=== PATIENT | male | born 1955 | race Caucasian/White ===

== ENCOUNTER 2017-12-13 10:49 | Observation (INO) ==
[2017-12-13] MEDS ORDERED: Tdap (Boostrix) Vaccine 0.5 ML SYRINGE IM ONE (11:10)
--- NOTE | 2017-12-13 11:14 | Emergency Department Note ---
Disposition Clinical Impression: High-pressure injection injury of finger of left hand Qualifiers: Encounter type: initial encounter Qualified Code(s): S69.82XA - Other specified injuries of left wrist, hand and finger(s), initial encounter; W29.8XXA - Contact with other powered hand tools and household machinery, initial encounter Disposition: Admitted As Inpatient Condition: Good Forms: ED Satisfaction Letter Time of Disposition: 12:31 General Adult HPI - General Chief complaint: ED Extremity Injury, Upper Stated complaint: Finger injury Time Seen by Provider: 12/13/17 11:04 Source: patient Limitations: no limitations - History of Present Illness Pain Scale: 9 - Related Data Allergies Allergy/AdvReac Type Severity Reaction Status Date / Time No Known Allergies Allergy Verified 12/13/17 11:12 Past Medical History - Past Medical History Medical history: Reports: other Psychiatric history: Reports: no psych history - Social History Smoking Status: Never smoker Smokeless Tobacco Status: No Alcohol use: Reports: occasionally Drug use: Reports: none Physical Exam - General Limitations: no limitations General appearance: alert, appears intoxicated Course Vital Signs Temperature 98.4 F 12/13/17 11:01 Pulse Rate 95 12/13/17 11:01 Respiratory Rate 18 12/13/17 11:01 Blood Pressure 173/96 12/13/17 11:01 O2 Sat by Pulse Oximetry 96 12/13/17 11:01 Temperature 98.4 F 12/13/17 11:09 Pulse Rate 95 12/13/17 11:09 Respiratory Rate 18 12/13/17 11:09 Blood Pressure 173/96 12/13/17 11:09 O2 Sat by Pulse Oximetry 96 12/13/17 11:09 Oxygen Delivery Oxygen Delivery Room Air Attestation Statement - Attestation Attestation: For this encounter, I have reviewed the PAPER MACHINE BACKTENDER or PA documentation, treatment plan, and medical decision making; and I have had face to face time with this patient. [id number] time provided Patient arrives after a pressure injection of hydraulic fluid to his left third digit. He does have a puncture wound and circumferential swelling. I have recommended the nurse practitioner to contact the hand surgeon, to update tetanus, to initiate antibiotics, and to discuss the possible need for operative washout
--- NOTE | 2017-12-13 11:23 | Emergency Department Note ---
Disposition Clinical Impression: High-pressure injection injury of finger of left hand Qualifiers: Encounter type: initial encounter Qualified Code(s): S69.82XA - Other specified injuries of left wrist, hand and finger(s), initial encounter Disposition: Admitted As Inpatient Condition: Good Referrals: Herrera Auguste DO [Primary Care Provider] - Forms: ED Satisfaction Letter Time of Disposition: 12:41 Upper Extremity HPI - General Chief Complaint: ED Extremity Injury, Upper Stated Complaint: Finger injury Time Seen by Provider: 12/13/17 11:04 Source: patient Mode of arrival: ambulatory Limitations: no limitations Nursing Notes Reviewed: Yes Vital Signs Reviewed: Yes - History of Present Illness HPI Narrative: Nontoxic-appearing 62-year-old male presents for evaluation of the left third finger injury sustained just prior to arrival at work. The patient states that he was working on a hydraulic line that exploded. He sustained a high pressure injection type injury to the palmar surface of the right third finger. Tetanus immunization status is not up-to-date. 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 Review of Systems: As Per HPI Constitutional: Denies: fever, chills, weakness, weight change Eyes: Denies: eye pain, eye discharge, vision change ENT ED: Denies: ear pain, throat pain, dental pain, hearing loss, epistaxis, congestion, dysphagia Cardiovascular: Denies: chest pain, palpitations, dyspnea on exertion, edema, syncope Respiratory: Denies: cough, dyspnea, wheezes, hemoptysis, stridor Gastrointestinal: Denies: abdominal pain, nausea, vomiting, diarrhea, constipation, hematemesis, melena, hematochezia Genitourinary: Denies: urgency, dysuria, frequency, hematuria Musculoskeletal: Reports: as per HPI, other (Left third finger injury). Denies : back pain, neck pain, arthralgia, myalgia Integumentary: Denies: rash, abrasion, lesions Neurological: Denies: headache, weakness, numbness, paresthesias, confusion, abnormal gait, vertigo Psychiatric: Denies: anxiety, depression, suicidal thoughts, homicidal thoughts , auditory hallucinations, visual hallucinations Endocrine: Denies: fatigue Hematological/Lymphatic: Denies: easy bleeding, easy bruising Allergic/Immunologic: Denies: facial swelling, urticaria Past Medical History - Past Medical History Attestation: Yes The following information was validated with the patient. Source: patient, nursing notes reviewed Medical history: Reports: other Psychiatric history: Reports: no psych history - Social History Smoking Status: Never smoker Smokeless Tobacco Status: No Alcohol use: Reports: occasionally Drug use: Reports: none Physical Exam - General Limitations: no limitations General appearance: alert, appears intoxicated - Head Head exam: atraumatic, normocephalic, normal inspection - Eye Eye exam: Present: normal appearance, PERRL, EOMI. Absent: nystagmus - ENT ENT exam: mucous membranes moist - Neck Neck exam: Present: normal inspection, full ROM, trachea midline - Chest Chest inspection: Present: normal inspection, symmetric chest wall rise - Expanded Upper Extremity Exam Elbow exam: Present: normal inspection, full ROM Forearm/Wrist exam: Present: normal inspection, full ROM Hand exam: Present: tenderness (Left third digit), swelling (Moderate, left third digit), other Hand L/R front image: 1 - other (2 separate minute puncture wounds from the patient's injection type injury.) Neuromotor exam: Normal: wrist extension, thumb opposition, fingers 2-5 abduction Neurosensory exam: Normal: radial nerve, ulnar nerve Hand tendon exam: Abnorm: flexor digitorum profundus (location) (Left third finger), extensor tendon (location) (Left third finger) Vascular exam: Normal: capillary refill, radial pulse, ulnar pulse - Neurological Exam Neurological exam: Present: alert, oriented X3 - Psychiatric Psychiatric exam: Present: normal affect, normal mood - Skin Skin exam: Present: warm, dry Course Course Narrative: 1115: I spoke with Dr. Peng, hand specialist with the [facility]. He states that this patient will likely need debridement in the operating room. Dr. Peng is currently in the OR as we speak however states that he will send his physician news assistant, Emmy Ríos to the emergency department to evaluate patient. He recommends updating the patient's tetanus status, obtaining a plain film x-ray. He advises against the administration of IV antibiotics at this time. The patient has been evaluated by orthopedics. Orthopedics is a prescription that the patient for admission under their services for probable surgical debridement. Vital Signs Temperature 98.4 F 12/13/17 11:01 Pulse Rate 95 12/13/17 11:01 Respiratory Rate 18 12/13/17 11:01 Blood Pressure 173/96 12/13/17 11:01 O2 Sat by Pulse Oximetry 96 12/13/17 11:01 Temperature 98.4 F 12/13/17 11:09 Pulse Rate 95 12/13/17 11:09 Respiratory Rate 18 12/13/17 11:09 Blood Pressure 173/96 12/13/17 11:09 O2 Sat by Pulse Oximetry 96 12/13/17 11:09 Oxygen Delivery Oxygen Delivery Room Air Extremity Injury, Upper - Medical Records Medical records reviewed: Yes I reviewed the patient's medical records. - Radiology Data Radiology results reviewed: Yes I reviewed the patient's radiology results.
[2017-12-13] MEDS ORDERED: Ondansetron 4 MG/2 ML VIAL ONE (13:25)
[2017-12-13] MEDS ORDERED: *HR* FentaNYL (PF) 100 MCG/2 ML VIAL ONE ×2 (13:25→15:07)
[2017-12-13] MEDS ORDERED: Lidocaine -MPF 2% 2 ML VIAL ONE ×2 (13:25→13:35)
[2017-12-13] MEDS ORDERED: *HR* Propofol 200 MG/20 ML VIAL IVP ONE (13:25)
[2017-12-13] MEDS ORDERED: Dexamethasone 4 MG/ML VIAL ONE (13:25)
[2017-12-13] MEDS ORDERED: Acetaminophen IV 1,000 MG/100 ML INFUS..BTL IVPB ONE ×2 (13:34→17:46)
[2017-12-13] MEDS ORDERED: Famotidine 20 MG/2 ML VIAL IVP ONE ×2 (13:34→17:46)
--- NOTE | 2017-12-13 13:37 | Anesthesia Evaluation PreOp ---
Date of Encounter: 12/13/17 Time of Encounter: 13:35 - Past History Planned Operation: Left Long Finger Incision and Drainage Cardiac History: Denies any Significant Hx Pulmonary History: Denies Any Significant HX SENIOR CLINICAL DATA ANALYST History: Denies Any Significant HX Other Medical History: Other (Gout) Anesthesia History: No Prior Anesthetic Complications Alcohol Use: occasionally Drug use: none Medications and Allergies 3 Allergy/AdvReac Type Severity Reaction Status Date / Time No Known Allergies Allergy Verified 12/13/17 11:12 - Meds/Allergy Pre-op Review Medications Reviewed: Yes Allergies Reviewed: Yes Beta Blockers on Current Med List: No Anesthesia Exam O2 Sat Height 1.85 m Height 1.85 m Weight 96.615 kg Weight 96.615 kg O2 Sat by Pulse Oximetry 96 O2 Sat by Pulse Oximetry 96 Vital Signs Temp Pulse Resp BP Pulse Ox 98.4 F 95 18 173/96 96 12/13/17 11:01 12/13/17 11:01 12/13/17 11:01 12/13/17 11:01 12/13/17 11:01 Height: 6'1 Weight: 213 lbs NPO (# of Hours): 0800 today eggs cheese Pain Scale: 2 - HEENT Pupil (Motor): Pupils equal, EOMI Mallampati: III Teeth: Normal Oral Opening: Less than or equal to 3 - SENIOR CLINICAL DATA ANALYST LOC: Oriented SENIOR CLINICAL DATA ANALYST Motor: Normal RUE, Normal LUE, Normal RLE, Normal LLE, Normal Face SENIOR CLINICAL DATA ANALYST Sensory: Normal: RUE, LUE, RLE, LLE, Face - Cardiac Rhythm: Regular Murmur: None JVD: No Carotid Bruit: No - Pulmonary Breath Sounds: bilateral Clear Respiratory Effort: Symmetrical Anesthesia Assess/Plan ASA Score: 2, E Modified [place] Scale for Level of Consciousness: Cooperative, oriented, and tranquil Anesthetic Plan: General Monitoring Plan: Standard Monitors Recovery Plan: PACU (Discussed GA, agrees to proceed)
--- NOTE | 2017-12-13 13:39 | Orthopedic History & Physical ---
Date of Encounter: 12/13/17 Time of Encounter: 12:00 Assessment and Plan (1) High-pressure injection injury of finger of left hand Current visit: Yes Status: Acute High risk of infection due to the nature of injury and risk of oil still in finger. Discussed case with Dr. Peng. This injury with require surgical intervention. Plan for left finger and hand incision and drainage today. I discussed the procedure as well as r/b/a with the patient. He expressed understanding and consent was obtained and given to the OR charge nurse. Keep NPO. He states he last had a cup of coffee and slice of cheese around 8am this morning. Will hold abx for now. Qualifiers: Encounter type: initial encounter Qualified Code(s): S69.82XA - Other specified injuries of left wrist, hand and finger(s), initial encounter; W29.8XXA - Contact with other powered hand tools and household machinery, initial encounter History of Present Illness Chief complaint: left long finger pain HPI: Mr. Lou is a 62 year old male who presented to the ER with a left long finger injury. 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 The other paulino increased the lever too much and caused the oil to spray out at a high pressure. He states it is operating under pressure of 3,000 psi. The oil sprayed through a mat that was around the pipe, through the gloves he was wearing and punctured his skin. The injury occurred around 10:30 this morning. He states he was able to push on the finger and oil came out of wound. Pain is described as constant burning, 8/10, localized to long finger and does not radiate into hand. He admits to tingling sensation through the finger. Denies pain anywhere else. States he is otherwise healthy and denies any other symptoms at this time. He is right hand dominant. Past Med Surg Social Fam HX - Past Medical History Medical history: other Additional medical history: gout Psychiatric history: no psych history - Social History Smoking Status: Never smoker Smokeless Tobacco Status: No Alcohol use: occasionally Drug use: none Medications and Allergies 3 Allergy/AdvReac Type Severity Reaction Status Date / Time No Known Allergies Allergy Verified 12/13/17 11:12 All Systems Reviewed: The remainder of the systems were reviewed and are negative - Constitutional Constitutional: as per HPI - Cardiovascular Cardiovascular: as per HPI - Respiratory Respiratory: as per HPI - Musculoskeletal Musculoskeletal: as per HPI Physical Exam - Constitutional Vitals: Temp Pulse Resp BP Pulse Ox 98.4 F 95 18 173/96 96 12/13/17 11:09 12/13/17 11:09 12/13/17 11:09 12/13/17 11:09 12/13/17 11:09 - Wrist & Hand left Location of pain: long finger (moderate swelling and tightness to left long finger with superficial longitudinal abrasion noted over volar surface of middle phalanx with small amount bleeding. Pain with palpation of PIPJ and DIPJ. No pain with palpation at MPJ. limited ROM at PIPJ and DIPJ. brisk cap refill. grossly NV intact) Results - Labs Labs: All other labs normal. - Diagnostic results Wrist/Hand x-ray: report reviewed, image reviewed - Attending Attestation Case and plan of care discussed with supervising physician who was available for all aspects of care.
[2017-12-13] MEDS ORDERED: Acetaminophen IV 1,000 MG/100 ML INFUS..BTL ONE (13:42)
[2017-12-13] MEDS ORDERED: Famotidine 20 MG/2 ML VIAL ONE (13:42)
[2017-12-13] MEDS ORDERED: Ringers Solution, Lactated 1,000 ML IVC SCH (13:45)
[2017-12-13] MEDS ORDERED: *HR* OxyCODONE Immed Rel 5 MG TABLET PO PRN ×2 (15:31→17:46)
[2017-12-13] MEDS ORDERED: MORPHINE SUL Oral CONC 10 MG/0.5 ML ORAL.SYG SL PRN (15:31)
[2017-12-13] MEDS ORDERED: *HR* Promethazine 25 MG/ML VIAL IVP PRN (15:31)
[2017-12-13] MEDS ORDERED: *HR* HYDROmorphone (PF) 1 MG/ML SYRINGE IVP PRN (15:31)
[2017-12-13] MEDS ORDERED: *HR* Meperidine 25 MG/ML SYRINGE IVP PRN (15:31)
[2017-12-13] MEDS ORDERED: Ondansetron 4 MG/2 ML VIAL IVP ONE ×2 (15:31→17:46)
[2017-12-13] MEDS ORDERED: *HR* Labetalol 20 MG/4 ML SYRINGE IVP PRN (15:31)
[2017-12-13] MEDS ORDERED: *HR* Morphine 10 MG/ML VIAL ONE (15:34)
--- NOTE | 2017-12-13 16:24 | Operative Note ---
Date of procedure: 12/13/17 Pre-op diagnosis: Left long finger high-pressure injection injury with hydraulic fluid Post-op diagnosis: same Procedure: Left hand/long finger decompression for ahigh-pressure injection injury Anesthesia: GETA Surgeon: Ian Peng Was there an research assistant present: Yes Finance Administrator: Emmy Adams Estimated blood loss (cc): 3 Tourniquet Time (Minutes): 14 Specimen: 0 Condition: stable Disposition: PACU Procedure in Detail: Indications: The patient is a 62-year-old [id number] gentleman who sustained a high-pressure injection injury to the volar side of his left long finger with hydraulic fluid. This injury happened earlier this morning a few hours ago. Procedure: The patient received IV antibiotics in the holding area, was brought into the operating room and placed on the OR table in supine position with the affected extremity on a hand table. A sign in was performed. The patient underwent general anesthesia, a tourniquet was placed on the left arm close to the axilla. The left upper extremity was prepped and draped in usual sterile fashion. A timeout was performed. The left upper extremity was then elevated , exsanguinated with an Georgi wrap and the tourniquet was raised to a pressure of 250 mmHg. The patient had a puncture wound on the volar surface of the left long finger just proximal to the distal interphalangeal joint flexion crease, more to the ulnar side. A Sussy's zigzag incision was performed cephalad ulnar side of the long finger DIP flexion crease and going proximally up to the MP flexion crease. Full-thickness skin flaps were elevated. There was a clear thin greasy fluid tracking along the flexor tendon sheath. I then also opened up a 1.5 cm incision proximal to the A1 neha level and also Some of the fluid. The incision was extended, connecting 2 wounds in zigzag fashion extending up to the distal carpal tunnel level. The flexor tendon was examined at the distal end of the carpal tunnel where it appeared fully dry and normal. The wound was copiously irrigated with normal saline. The tourniquet was deflated. Hemostasis obtained with the bipolar electrocautery. The wound was once again copiously irrigated normal saline. The skin was closed with 5-0 nylon mattress and simple sutures. A small TLS drain was placed into through the puncture hole, and placed long the flexor sheath up to the A1 level. The patient was given a digital block with 10 mL of 0.5% Marcaine for postoperative pain control. Sterile dressings applied. The patient was extubated and taken to recovery in stable condition.
--- NOTE | 2017-12-13 16:41 | Anesthesia Evaluation Post Op ---
Date of Encounter: 12/13/17 Time of Encounter: 16:45 - Vital Signs Vital Signs: Vital Signs/O2 Sat/Glucose, Most Current Temp Pulse Resp BP Pulse Ox 12/13/17 16:37 97.8 F 82 16 151/88 98 12/13/17 16:27 97.8 F 94 16 140/80 94 12/13/17 16:17 97.4 F L 90 14 136/75 96 - Lungs Lungs: Clear Ascult./Percussion - Airway Airway: Non-obstructed - Cardiovascular Regular Rate - Mental Status Mental Status: Alert & Oriented, Answers Appropriately - Pain Pain Scale: 1 - Nausea Vomiting Nausea Vomiting: Not Present - Hydration Hydration: Ice chips - Discharge PostOp Status: Transfer Patient to floor
[2017-12-13] MEDS ORDERED: D5% in 0.45% NACL 1,000 ML IVC SCH (17:46)
[2017-12-13] MEDS: *HR* OxyCODONE/APAP 5/325 TABLET PO PRN (18:43)
[2017-12-14] MEDS: *HR* OxyCODONE/APAP 5/325 TABLET PO PRN ×3 (05:25→14:55)
--- NOTE | 2017-12-14 12:03 | Discharge Summary ---
Orders not resulted at time of discharge: Do not remove dressings Elevate hand. Move fingers and thumb, making sure to make a full fist Use ice for 1 to 2 hour 3 times a day for the next 2 days. No lifting with the operative hand No sports or gym activities follow-up Sunday with Emmy Adams PA-C Date of Encounter: 12/14/17 Time of Encounter: 11:59 - Discharge Diagnosis (1) High-pressure injection injury of finger of left hand Priority: Primary Status: Acute Qualifiers: Encounter type: initial encounter Qualified Code(s): S69.82XA - Other specified injuries of left wrist, hand and finger(s), initial encounter; W29.8XXA - Contact with other powered hand tools and household machinery, initial encounter - Hospital Course Hospital course: Mr. Lou is a 62 year old male - Time Spent with Patient Total time spent providing and/or coordinating discharge services: - Discharge Medications Prescriptions: OxyCODONE/APAP 5/325 [Percocet 5/325 MG] 1 each PO Q6HR PRN 7 Days #28 tablet PRN Reason: Pain Home Medications: OxyCODONE/APAP 5/325 [Percocet 5/325 MG] 1 each PO Q6HR PRN 7 Days #28 tablet [Rx] Allergies/Adverse Reactions: 3 Allergy/AdvReac Type Severity Reaction Status Date / Time No Known Allergies Allergy Verified 12/13/17 11:12 Date of admission: 12/13/17 13:01 Primary care physician: Herrera Auguste DO - VTE Documentation of Mechanical Device: Intermittent pneumatic compression device - Impressions Drain pulled today. Fit motion of long finger. Good cap refill, sensation the fingertip We will discharge today - Patient Status Disposition: Home, Self-Care Condition: Good Overall status at discharge: patient is back to baseline - Discharge Instructions Follow Up With: Herrera Auguste DO [Primary Care Provider] -
[2017-12-14 14:52] VITALS: BP 139/74
== END 2017-12-14 18:15 | disposition home or self-care (01) ==
LOC: EMEROOARM 10:49 → 3ANU 10:49
PROVIDERS: ADMIT Orthopaedic Surgery Hand Surgery; ATTEND Orthopaedic Surgery Hand Surgery